=== PATIENT | female | born 1965 | race Caucasian/White ===

== ENCOUNTER 2018-02-26 08:39 | Emergency (ER) | payer OTHER ==
[~2018-02-26] VITALS: Ht 167.6 cm; Wt 81.7 kg
[~2018-02-26 08:39] MED LIST: DAYPRO600 MG PO; DEPAKOTE500 MG PO; ELIMITE60 GM TOP; LEXAPRO20 MG PO; LORTAB 7.5-5001 EACH PO; PEPCID20 MG PO; PREVACID 24HR15 MG PO; PROMETHAZINE HC25 M1 PO; TRAZODONE HCL100 MG PO; TUMS DUAL ACTI1 EACH PO
[2018-02-26] MEDS ORDERED: OMEPRAZOLE20 MG PO (08:51)
[2018-02-26] MEDS ORDERED: HYDROXYZINE PAM50 MG PO (08:52)
[2018-02-26] MEDS ORDERED: CYCLOBENZAPRINE5 MG PO (09:06)
[2018-02-26] MEDS ORDERED: NEURONTIN300 MG PO (09:06)
== END 2018-02-26 09:56 | disposition home or self-care (01) ==
LOC: ED 08:39
DX: M47.896 Other spondylosis, lumbar region (principal); M54.2 Cervicalgia; F17.200 Nicotine dependence, unspecified, uncomplicated; Z88.0 Allergy status to penicillin; Z88.8 Allergy status to other drugs, medicaments and biological substances; Z79.899 Other long term (current) drug therapy
CPT/HCPCS: 72040; 72100; 99283

== ENCOUNTER 2018-10-26 12:07 | Emergency (ER) | payer OTHER ==
[~2018-10-26] VITALS: Ht 167.6 cm; Wt 81.7 kg
[~2018-10-26 12:07] MED LIST changes: +CYCLOBENZAPRINE5 MG PO; +HYDROXYZINE PAM50 MG PO; +NEURONTIN300 MG PO; +OMEPRAZOLE20 MG PO
[2018-10-26] MEDS ORDERED: NAPROSYN500 MG PO (14:16)
[2018-10-26] MEDS ORDERED: NEURONTIN300 MG PO (14:16)
[2018-10-26] MEDS ORDERED: CYCLOBENZAPRINE5 MG PO (14:16)
== END 2018-10-26 15:00 | disposition home or self-care (01) ==
LOC: ED 12:07
DX: S39.012A Strain of muscle, fascia and tendon of lower back, initial encounter (principal); S29.012A Strain of muscle and tendon of back wall of thorax, initial encounter; F31.9 Bipolar disorder, unspecified; F17.200 Nicotine dependence, unspecified, uncomplicated; Z90.710 Acquired absence of both cervix and uterus; Z88.0 Allergy status to penicillin; Z88.8 Allergy status to other drugs, medicaments and biological substances; Z91.09 Other allergy status, other than to drugs and biological substances; W22.8XXA Striking against or struck by other objects, initial encounter
CPT/HCPCS: 72040; 72100; 96372; 99283-25; J1885; J7512

== ENCOUNTER 2018-11-03 11:02 | Emergency (ER) | payer OTHER ==
[~2018-11-03] VITALS: Ht 167.6 cm; Wt 82.1 kg
[~2018-11-03 11:02] MED LIST changes: +NAPROSYN500 MG PO
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
== END 2018-11-03 11:16 | disposition home or self-care (01) ==
LOC: ED 11:02
DX: R68.84 Jaw pain (principal)

== ENCOUNTER 2018-12-01 19:47 | Emergency (ER) | payer OTHER ==
[~2018-12-01] VITALS: Ht 167.6 cm; Wt 80.3 kg
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
[2018-12-01] MEDS ORDERED: BAYER CHEWABLE81 MG PO (20:04)
== END 2018-12-01 21:20 | disposition home or self-care (01) ==
LOC: ED 19:47
DX: Z48.814 Encounter for surgical aftercare following surgery on the teeth or oral cavity (principal); F31.9 Bipolar disorder, unspecified; F17.200 Nicotine dependence, unspecified, uncomplicated; Z90.710 Acquired absence of both cervix and uterus; Z88.0 Allergy status to penicillin; Z91.09 Other allergy status, other than to drugs and biological substances; Z88.5 Allergy status to narcotic agent; Z79.82 Long term (current) use of aspirin
CPT/HCPCS: 70150; 99283

== ENCOUNTER 2018-12-12 17:55 | Emergency (ER) | payer OTHER ==
[~2018-12-12] VITALS: Ht 167.6 cm; Wt 80.3 kg
[~2018-12-12 17:55] MED LIST changes: +BAYER CHEWABLE81 MG PO
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
== END 2018-12-12 20:00 | disposition left against medical advice (07) ==
LOC: ED 17:55
DX: R50.9 Fever, unspecified (principal); M79.89 Other specified soft tissue disorders; Z53.21 Procedure and treatment not carried out due to patient leaving prior to being seen by health care provider

== ENCOUNTER 2018-12-18 11:27 | Emergency (ER) | payer OTHER ==
[~2018-12-18] VITALS: Ht 167.6 cm; Wt 80.3 kg
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
[2018-12-18] MEDS ORDERED: GABAPENTIN300 MG PO (11:47)
[2018-12-18] MEDS ORDERED: DEXAMETHAS0.5 MG/51 PO (14:34)
[2018-12-18] MEDS ORDERED: AMOXICILLIN500 MG PO (14:34)
== END 2018-12-18 14:45 | disposition home or self-care (01) ==
LOC: ED 11:27
DX: G89.18 Other acute postprocedural pain (principal); F17.200 Nicotine dependence, unspecified, uncomplicated; Z88.0 Allergy status to penicillin; Z88.8 Allergy status to other drugs, medicaments and biological substances; Z79.899 Other long term (current) drug therapy
CPT/HCPCS: 99283

== ENCOUNTER 2019-07-06 13:58 | Emergency (ER) | payer OTHER ==
[~2019-07-06] VITALS: Ht 167.6 cm; Wt 80.3 kg
[~2019-07-06 13:58] MED LIST changes: +AMOXICILLIN500 MG PO; +DEXAMETHAS0.5 MG/51 PO; +GABAPENTIN300 MG PO
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
[2019-07-06] MEDS ORDERED: ESCITALOPRAM OX10 MG PO (14:15)
[2019-07-06] MEDS ORDERED: TRAZODONE HCL100 MG PO (14:15)
[2019-07-06] MEDS ORDERED: CYCLOBENZAPRINE10 MG PO (16:08)
== END 2019-07-06 16:40 | disposition home or self-care (01) ==
LOC: ED 13:58
DX: M54.5 Low back pain (principal); F31.9 Bipolar disorder, unspecified; M79.7 Fibromyalgia; F17.200 Nicotine dependence, unspecified, uncomplicated; Z88.0 Allergy status to penicillin; Z88.8 Allergy status to other drugs, medicaments and biological substances; Z88.5 Allergy status to narcotic agent; Z79.899 Other long term (current) drug therapy; Z79.82 Long term (current) use of aspirin
CPT/HCPCS: 71045; 72100; 99283-25; 99406

== ENCOUNTER 2019-07-18 14:02 | Emergency (ER) | payer OTHER ==
[~2019-07-18] VITALS: Ht 167.6 cm; Wt 80.3 kg
[~2019-07-18 14:02] MED LIST changes: +CYCLOBENZAPRINE10 MG PO; +ESCITALOPRAM OX10 MG PO
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
[2019-07-18] MEDS ORDERED: PREDNISONE20 MG PO (18:00)
== END 2019-07-18 18:16 | disposition home or self-care (01) ==
LOC: ED 14:02
DX: M47.896 Other spondylosis, lumbar region (principal); M47.892 Other spondylosis, cervical region; F31.9 Bipolar disorder, unspecified; F17.200 Nicotine dependence, unspecified, uncomplicated; Z88.0 Allergy status to penicillin; Z88.8 Allergy status to other drugs, medicaments and biological substances; Z88.5 Allergy status to narcotic agent; Z79.899 Other long term (current) drug therapy; Z79.82 Long term (current) use of aspirin
CPT/HCPCS: 81001; 99283-25; 99406; J7512

== ENCOUNTER 2019-07-30 06:12 | Emergency (ER) | payer OTHER ==
[~2019-07-30] VITALS: Ht 167.6 cm; Wt 80.3 kg
[~2019-07-30 06:12] MED LIST changes: +PREDNISONE20 MG PO
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
[2019-07-30] MEDS ORDERED: ONDANSETRON ODT4 MG SL (08:57)
[2019-07-30] MEDS ORDERED: NORCO 5-325 TA1 EACH PO (08:57)
== END 2019-07-30 09:10 | disposition home or self-care (01) ==
LOC: ED 06:12
DX: K80.70 Calculus of gallbladder and bile duct without cholecystitis without obstruction (principal); F31.9 Bipolar disorder, unspecified; F17.200 Nicotine dependence, unspecified, uncomplicated; Z88.0 Allergy status to penicillin; Z88.8 Allergy status to other drugs, medicaments and biological substances; Z88.5 Allergy status to narcotic agent; Z79.899 Other long term (current) drug therapy
CPT/HCPCS: 71045; 76705; 80053; 81001; 83690; 85025; 96374; 99285-25; 99406; J2405

== ENCOUNTER 2019-08-28 15:48 | Emergency (ER) | payer OTHER ==
[~2019-08-28] VITALS: Ht 167.6 cm; Wt 80.3 kg
[~2019-08-28 15:48] MED LIST changes: +NORCO 5-325 TA1 EACH PO; +ONDANSETRON ODT4 MG SL
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
[2019-08-28] MEDS ORDERED: MULTI-VITAMIN1 EACH PO (16:24)
[2019-08-28] MEDS ORDERED: VITAMIN D32000 UNI1 PO (16:25)
[2019-08-28] MEDS ORDERED: VITAMIN B-1250 MC1 PO (16:26)
[2019-08-28] MEDS ORDERED: VITAMIN B-625 MG PO (16:26)
[2019-08-28] MEDS ORDERED: NORCO 5-325 TA1 EACH PO (17:50)
[2019-08-28] MEDS ORDERED: ONDANSETRON ODT8 MG PO (17:50)
== END 2019-08-28 18:02 | disposition home or self-care (01) ==
LOC: ED 15:48
DX: K80.50 Calculus of bile duct without cholangitis or cholecystitis without obstruction (principal); F31.9 Bipolar disorder, unspecified; F17.200 Nicotine dependence, unspecified, uncomplicated; Z88.0 Allergy status to penicillin; Z88.8 Allergy status to other drugs, medicaments and biological substances; Z88.5 Allergy status to narcotic agent; Z79.899 Other long term (current) drug therapy
CPT/HCPCS: 80053; 81001; 83690; 85025; 99284

== ENCOUNTER 2019-09-29 10:32 | Emergency (ER) | payer OTHER ==
[~2019-09-29] VITALS: Ht 167.6 cm; Wt 79.4 kg
[~2019-09-29 10:32] MED LIST changes: +MULTI-VITAMIN1 EACH PO; +ONDANSETRON ODT8 MG PO; +VITAMIN B-1250 MC1 PO; +VITAMIN B-625 MG PO; +VITAMIN D32000 UNI1 PO
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
[2019-09-29] MEDS ORDERED: LITHIUM CARBON300 MG PO (10:50)
[2019-09-29] MEDS ORDERED: DOXYCYCLINE HY100 MG PO (11:54)
== END 2019-09-29 12:16 | disposition home or self-care (01) ==
LOC: ED 10:32
DX: J02.0 Streptococcal pharyngitis (principal); L03.211 Cellulitis of face; F31.9 Bipolar disorder, unspecified; F17.200 Nicotine dependence, unspecified, uncomplicated; Z85.41 Personal history of malignant neoplasm of cervix uteri; Z88.0 Allergy status to penicillin; Z88.8 Allergy status to other drugs, medicaments and biological substances; Z88.5 Allergy status to narcotic agent; Z79.899 Other long term (current) drug therapy
CPT/HCPCS: 87880; 99284; A9270